=== PATIENT | female | born 1960 | race Caucasian/White ===

== ENCOUNTER 2020-05-25 11:09 | Emergency (ER) | payer OTHER ==
[~2020-05-25] VITALS: Ht 165.1 cm; Wt 102.1 kg
[2020-05-25] MEDS ORDERED: EUTHYROX125 MCG PO (11:33)
[2020-05-25] MEDS ORDERED: TOBRAMYCIN5 ML RIGHTEYE (11:34)
[2020-05-25] MEDS ORDERED: Norco 5-325 Ta1 EACH PO (11:56)
== END 2020-05-25 12:28 | disposition home or self-care (01) ==
LOC: ER 11:09
DX: S52.501A Unspecified fracture of the lower end of right radius, initial encounter for closed fracture (principal); E06.3 Autoimmune thyroiditis; Z88.0 Allergy status to penicillin; Z88.1 Allergy status to other antibiotic agents; Z88.4 Allergy status to anesthetic agent; Z88.2 Allergy status to sulfonamides; Z88.8 Allergy status to other drugs, medicaments and biological substances; Z79.899 Other long term (current) drug therapy; W01.0XXA Fall on same level from slipping, tripping and stumbling without subsequent striking against object, initial encounter; Y93.01 Activity, walking, marching and hiking
CPT/HCPCS: 29125; 73090; 73110; 99283-25; A9270-GY